=== PATIENT | female | born 1985 | race Asian ===

== ENCOUNTER → 2019-09-24 10:20 | Outpatient (CLI) | payer OTHER, SELFPAY | PROVIDERS: PCP Family Medicine; Referring Provider Obstetrics & Gynecology; Visit Provider Obstetrics & Gynecology | DX: Z11.59 Encounter for screening for other viral diseases (principal) | CPT/HCPCS: 87635; G2023; U0003 ==

== ENCOUNTER 2019-09-27 09:00 | Inpatient (IN) | payer OTHER, SELFPAY ==
[2019-09-27] VITALS (18 sets, daily range): BP systolic 93–114; BP diastolic 47–78; PULSE 65–79; RESP 14–126; TEMP 36.5–37.3; O2SAT 98–100; BMI 29.0
[2019-09-27] MEDS: Lactated Ringers 1,000 ML 999 ML IV (09:40)
[2019-09-27 10:21] LABS: Absolute Lymphocyte Count 1.33 X10^3/uL (0.83-4.51); Absolute Neutrophil Count 4.7 X10^3/uL (2.0-7.7); Basophil# 0.02 X10^3/uL; Basophil% 0.3 % (0-1); Eosinophil# 0.08 X10^3/uL; Eosinophils% 1.2 % (0-5); Hematocrit 35.6 % (37-47); Hemoglobin 11.7 g/dL (12.0-15.0); Lymphocyte # 1.33 X10^3/ul (4.0); Lymphocyte % 20.1 % (19-41); Mean Corp Hgb Conc 32.9 g/dL (32-36); Mean Corpuscular Hgb 28.2 pg (27.0-32.0); Mean Corpuscular Volume 85.8 fL (81-99); Monocyte# 0.45 X10^3/uL; Monocyte% 6.8 % (0-10); NRBC Flagged by Analyzer 0 % (0-5); Neutrophil % 71.1 % (47-70); Platelet Count 206 K/mm3 (150-450); RBC Distribution Width CV 14.7 % (11.6-14.6); RBC Distribution Width SD 45.7 fl (35.1-43.9); Red Blood Count 4.15 M/mm3 (4.2-5.4); White Blood Count 6.6 K/mm3 (4.4-11.0)
[2019-09-27] MEDS: Acetaminophen 500 MG Tablet 1000 MG PO ×3 (10:49→23:49)
[2019-09-27] MEDS: Lactated Ringers 1,000 ML 150 ML IV (10:49)
[2019-09-27] MEDS: Sodium Citrate/Citric Acid 30 ML UDC PO (10:50)
[2019-09-27] MEDS: Cefazolin 2 GM in 0.9% Normal Saline 100 ML IV (11:33)
--- NOTE | 2019-09-27 12:40 | HP.PCM_ITS ---
History Date of Admission: 09/27/19 Final JAIMIE: 10/03/19 Gestational age: 39 Weeks and 1 Days History of this : This is a 34 year-old, G [], P [], at 39 weeks gestational age. Allergies No Known Allergies Allergy (Verified 08/12/16 11:47) Home Medications: Home Medications No Known/Unobtainable [No Known Home Medications] 08/10/16 Smoking Status: Never smoker Alcohol: None Number of Fetus(es): 1 History Past Pregnancies: Past Pregnancies Delivery Date Name GA/ Weeks Outcome Route Wt Infant Sex Labor Length Anesthesia Delivery Location Provider FOB Labs: See [facility] prenatals Physical Exam Vitals: Vital Signs Temp Pulse BP Pulse Ox 98.0 F 73 111/75 98 09/27/19 10:30 09/27/19 10:30 09/27/19 10:30 09/27/19 10:30 General: Alert, Oriented x3 Abdomen: Soft, Non Tender, Non-Distended, Gravid Neurological: Cranial nerves II-XII grossly intact [employer]SE MECH[employer]IC: Normal external genitalia Presentation: Breech - confirmed by TAUS today Assessment/Plan This is a 34 year-old, G2, P0010, at 39&1 weeks gestational age. Admit to L&D Breech - discussed R/B/A of MOD and patient wishes to proceed with primary c- section. All questions answered & informed consent signed. COVID negative GDM - check PP FBS
--- NOTE | 2019-09-27 12:43 | OP.PCM_ITS ---
Report of Operation Date of Procedure: 09/27/19 Surgery/Procedure Performed:: Primary low transverse section Description of Surgical Findings:: Maternal uterus with large (6x5cm)l eft sided fibroid and smaller (1x2cm)midline to right sided fibroid. Normal adnexa. Delivery Classification: Scheduled Final JAIMIE: 10/03/19 Gestational age: 39 Weeks and 1 Days chairman & chief executive officer: Shwetha Loza Type of Anesthesia:: Spinal Date of Procedure: 09/27/19 Pre-Operative Diagnosis: Breech Post-Operative Diagnosis: Breech Indications for : Breech Description of Procedure: Patient taken to OR where spinal anesthesia was placed. She was prepped and draped in the normal sterile fashion in a dorsal supine position with a leftward tilt. After ensuring adequacy of anesthesia the Pfannensteil skin incision was made and carried through to the underlying fascia with a scalpel. The fascia was incised in the midline and carried laterally with the Marquez scissors. The rectus muscles were in the midline and the peritoneum was entered bluntly. The bladder flap was dissected down carefully with the Metzenbaum scissors and blunt dissection. The uterus was incised in a transverse fashion and then incision extended with cephalocaudad traction. The fetus was breech and buttocks were grasped. Baby was delivered via typical breech maneuvers with also making a slight extension(2cm) in the uterine incision with bandage scissors to allow for head delivery. At no time was excess traction placed on the baby. 3VC clamped & cut in slightly delayed fashion. Then the infant was handed off to the waiting RN. The placenta was delivered with gentle traction and fundal massage and the uterus was exteriorized and cleared of all clots and debris. The uterine incision was closed with 1 vicryl suture in a running locked fashion. 2 additional figure of 8 sutures were placed on the right side of the uterine incision to further obtain hemostasis. A second imbricating layer of monocryl was placed. The uterus was returned to the peritoneal cavity. The pelvis was irrigated & then cleared of all clots and debris. The uterine incision was reexamined and found to be hemostatic. Some neri was placed over the uterine incision & bladder flap area due to the denuded areas. The fascia was closed with looped PDS suture in a running standard fashion. The subcutaneous tissue was examined & any bleeding bovie cauterized. The subcutaneous tissue was reapproximated with plain gut suture. The skin was closed in a subcuticular fashion by the TRAINING AND DEVELOPMENT HEAD with me present in the labor and delivery suite. I performed the remainder of the procedure w/ assistance. Amniotic Membrane Rupture Type: Artificial Amniotic Fluid Description: Clear Placenta Disposition: [facility] Drain: Nielson to straight drain Fluids Replaced: 1100ml Cord Entanglement: None Cord Vessel Description: 3 Vessels Esitmated Blood Loss (ml): 900ml Gender: Female - weight = 7-15 (1 minute): 8 (5 minute): 9 Delayed cord clamping: Yes Antibiotic Given: Ancef 2 grams IV x1 Complications: None
[2019-09-27] MEDS: Oxytocin 30 units/NS 500 ml 30 UNITS/500 ML IV.SOLN 167 UNITS IV (13:10)
[2019-09-27 13:31] LABS: Bedside Glucose 65 mg/dL (70-110)
[2019-09-27 13:31] LABS: Bedside Glucose 88 mg/dL (70-110)
[2019-09-27] MEDS: Lactated Ringers 1,000 ML 100 ML IV (16:18)
[2019-09-27 17:36] LABS: Bedside Glucose 92 mg/dL (70-110)
[2019-09-27] MEDS: Ketorolac 30 MG/ML Syringe IV ×2 (18:05→23:49)
[2019-09-27] MEDS: 0.9% Saline Lock 10 ML Syringe IV (23:49)
[2019-09-28] MEDS: Lactated Ringers 1,000 ML 100 ML IV (01:51)
--- NOTE | 2019-09-28 02:01 | NURSING ---
this RN closely assessing urine output. watson catheter not removed at this time d/t strike intake and output needed prior to next toradol dose. pt has borderline urine output at this time with rebecca colored urine. this RN strongly encouraging PO fluids and hung a second bag of LR. pt educated on the importance of having 30 cc/hr of urine in order to get next pain dose of medication.
[2019-09-28 03:45] VITALS: BP 112/66; PULSE 88; RESP 14; TEMP 37.1; O2SAT 95
[2019-09-28 04:06] LABS: Bedside Glucose 76 mg/dL (70-110)
[2019-09-28 04:16] LABS: Hematocrit 27.1 % (37-47); Hemoglobin 8.6 g/dL (12.0-15.0); Mean Corp Hgb Conc 31.7 g/dL (32-36); Mean Corpuscular Hgb 27.6 pg (27.0-32.0); Mean Corpuscular Volume 86.9 fL (81-99); Mean Platelet Vol. 11.3 fl (6.2-12.0); Platelet Count 157 K/mm3 (150-450); RBC Distribution Width SD 46.8 fl (35.1-43.9); Red Blood Count 3.12 M/mm3 (4.2-5.4); White Blood Count 7.6 K/mm3 (4.4-11.0)
[2019-09-28] MEDS: 0.9% Saline Lock 10 ML Syringe IV ×3 (04:40→12:18)
[2019-09-28] MEDS: Acetaminophen 500 MG Tablet 1000 MG PO ×4 (06:06→23:57)
[2019-09-28] MEDS: Ketorolac 30 MG/ML Syringe IV ×2 (06:06→12:18)
--- NOTE | 2019-09-28 08:18 | PCM.PN.OB ---
Subjective: Patient seen at bedside. infant. Reports minimal ambulation yesterday but has plans to walk more today. Pain is well controlled with Toradol IV. Patient is to start PO Motrin tonight and desires another medication. 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 Advised will write for PO Toradol. - Physical Exam Vitals/I&O's: Vital Signs Temp Pulse Resp BP Pulse Ox 98.7 F 88 14 112/66 95 09/28/19 03:45 09/28/19 03:45 09/28/19 03:45 09/28/19 03:45 09/28/19 03:45 Oxygen Delivery Method Room Air Weight: 153 lb 10.595 oz Body Mass Index (BMI) 29.0 Intake and Output for Last 24 Hours 09/26/19 09/27/19 09/28/19 23:59 23:59 23:59 Intake Total 3254 / 3254 2436.67 / 2436.67 Output Total 1025 / 1025 400 / 400 Balance 2229 / 2229 2036.67 / 2036.67 General: Alert, Oriented x3, Cooperative Lungs: Normal air movement Cardiovascular: Regular rate Abdomen: Bowel Sounds Present, Soft, Passing Flatus Extremities: Capillary Refill Less than 3 Seconds, No Calf Tenderness Skin: No rashes Neurological: Cranial nerves II-XII grossly intact Psych/Mental Status: Normal Affect Comment: Dressing is dry and intact. Fundus firm at U Laboratory Results 09/27/19 09:40: WBC 6.6, RBC 4.15 L, Hgb 11.7 L, Hct 35.6 L, MCV 85.8, MCH 28.2, MCHC 32.9, RDW Std Deviation 45.7 H, RDW Coeff of Brayden 14.7 H, Plt Count 206, MPV 12.0, Immature Gran % (Auto) 0.500, Neut % (Auto) 71.1 H, Lymph % (Auto) 20.1, Archer % (Auto) 6.8, Eos % (Auto) 1.2, Baso % (Auto) 0.3, Absolute Neuts (auto) 4.7, Absolute Lymphs (auto) 1.33, Nucleated RBC % 0 09/27/19 09:40: Blood Type AB POSITIVE, Antibody Screen NEGATIVE 09/27/19 10:39: POC Glucose 65 L 09/27/19 11:22: POC Glucose 88 09/27/19 13:34: POC Glucose 92 09/28/19 03:52: POC Glucose 76 09/28/19 04:00: WBC 7.6, RBC 3.12 L, Hgb 8.6 L, Hct 27.1 L, MCV 86.9, MCH 27.6, MCHC 31.7 L, RDW Std Deviation 46.8 H, RDW Coeff of Brayden 15.0 H, Plt Count 157, MPV 11.3 Current Medications Acetaminophen (Tylenol) 1,000 mg PO Q6 ON LICENSE OF [facility] Last Admin: 09/28/19 06:06 Dose: 1,000 mg Documented by: Bisacodyl (Dulcolax) 10 mg RECTAL UD PRN PRN Reason: If no BM Diphenhydramine HCl (Benadryl) 25 mg PO Q6H PRN PRN PRN Reason: ITCHING Stop: 09/28/19 13:04 Enoxaparin Sodium (Lovenox) 40 mg SC BID ON LICENSE OF [facility] Hydrocortisone (Hytone) 1 applic TOPICAL TID PRN PRN; Protocol PRN Reason: Discomfort Naloxone HCl 4 mg/ Dextrose 504 mls @ 0 mls/hr IV PRN PRN; Protocol PRN Reason: TO MAINTAIN RR>10 Lactated Ringer's () 1,000 mls @ 100 mls/hr IV .Q10H ON LICENSE OF [facility] Last Infusion: 09/28/19 04:40 Dose: Infused Documented by: Ibuprofen (Motrin) 600 mg PO Q6 ON LICENSE OF [facility] Ketorolac Tromethamine (Toradol (Bkc)) 30 mg IV Q6 ON LICENSE OF [facility] Stop: 09/28/19 12:01 Last Admin: 09/28/19 06:06 Dose: 30 mg Documented by: Methylergonovine Maleate (Methergine) 0.2 mg IM X1 PRN PRN Reason: Uterine Atony Nalbuphine HCl (Nubain) 5 mg IV Q3H PRN PRN PRN Reason: ITCHING Stop: 09/28/19 13:04 Naloxone HCl (Narcan) 0.2 mg IV Q1M PRN PRN Reason: RR<10 AND PT UNRESPONSIVE Stop: 09/28/19 13:05 Ondansetron HCl (Zofran) 4 mg IV Q4H PRN PRN PRN Reason: Nausea Oxycodone HCl (Oxyir) 5 - 10 mg PO Q4H PRN PRN PRN Reason: Pain Score 4-10/10 Prochlorperazine Edisylate (Compazine Iv) 10 mg IV Q6H PRN PRN PRN Reason: NAUSEA Senna/Docusate Sodium (Senokot-S, Yadi-Colace) 0 tablet PO DAILY DEANDRA Simethicone (Mylicon) 80 mg PO PCHS PRN PRN Reason: Indigestion/stomach pain Sodium Chloride () 5 - 15 ml IV UD PRN PRN Reason: SALINE FLUSH Last Admin: 09/28/19 06:06 Dose: 10 ml Documented by: Medical Necessity - Tobacco Use Smoking Status: Never smoker Assessment/Plan Patient is Post op day #1 Primary c/s for breech Pain management Increase ambulation Routine care Anticipate discharge home tomorrow
[2019-09-28 08:35] VITALS: BP 87/53; PULSE 70; RESP 16; TEMP 36.6; O2SAT 96
[2019-09-28] MEDS: Enoxaparin 40 MG/0.4 ML Syringe SC ×2 (10:15→22:07)
[2019-09-28] MEDS: Senna/Docusate Sodium 1 Tablet PO (10:15)
[2019-09-28 12:20] VITALS: BP 95/83; PULSE 69; RESP 14; TEMP 36.4
[2019-09-28 16:20] VITALS: BP 89/56; PULSE 70; RESP 16; TEMP 36.7; O2SAT 95
[2019-09-28 20:22] VITALS: BP 106/61; PULSE 70; RESP 16; TEMP 36.9
[2019-09-28] MEDS: Ketorolac 10 MG Tablet PO (20:32)
[2019-09-29 02:10] VITALS: BP 104/56; PULSE 80; RESP 16; TEMP 37
[2019-09-29] MEDS: Ketorolac 10 MG Tablet PO ×3 (02:55→15:09)
[2019-09-29] MEDS: Acetaminophen 500 MG Tablet 1000 MG PO ×2 (06:12→12:49)
[2019-09-29 08:59] VITALS: BP 102/66; PULSE 69; RESP 18; TEMP 36.4; O2SAT 97
--- NOTE | 2019-09-29 09:09 | PN.OBGYN_ITS ---
Subjective: Patient seen at bedside. Pain controlled. Ambulating and voiding without difficulty. Passing flatus and had BM this morning. going well. Desires discharge home today - Physical Exam Vitals/I&O's: Vital Signs Temp Pulse Resp BP Pulse Ox 97.6 F L 69 18 102/66 97 09/29/19 08:59 09/29/19 08:59 09/29/19 08:59 09/29/19 08:59 09/29/19 08:59 Oxygen Delivery Method Room Air Weight: 153 lb 10.595 oz Body Mass Index (BMI) 29.0 Intake and Output for Last 24 Hours 09/27/19 09/28/19 09/29/19 23:59 23:59 23:59 Intake Total 3254 / 3254 2436.67 / 2436.67 Output Total 1025 / 1025 800 / 800 Balance 2229 / 2229 1636.67 / 1636.67 General: Alert HEENT: Atraumatic Lungs: Normal air movement Cardiovascular: Regular rate Abdomen: Bowel Sounds Present, Soft, Non Tender Extremities: No edema Skin: No rashes Neurological: Cranial nerves II-XII grossly intact - Dressing is dry and intact. Fundus is firm 1 below U Current Medications Acetaminophen (Tylenol) 1,000 mg PO Q6 [facility] Last Admin: 09/29/19 06:12 Dose: 1,000 mg Documented by: Bisacodyl (Dulcolax) 10 mg RECTAL UD PRN PRN Reason: If no BM Enoxaparin Sodium (Lovenox) 40 mg SC BID [facility] Last Admin: 09/28/19 22:07 Dose: 40 mg Documented by: Hydrocortisone (Hytone) 1 applic TOPICAL TID PRN PRN; Protocol PRN Reason: Discomfort Naloxone HCl 4 mg/ Dextrose 504 mls @ 0 mls/hr IV PRN PRN; Protocol PRN Reason: TO MAINTAIN RR>10 Ketorolac Tromethamine (Toradol) 10 mg PO Q6H PRN PRN PRN Reason: Pain Score 1-5/10 Stop: 10/03/19 18:00 Last Admin: 09/29/19 02:55 Dose: 10 mg Documented by: Methylergonovine Maleate (Methergine) 0.2 mg IM X1 PRN PRN Reason: Uterine Atony Ondansetron HCl (Zofran) 4 mg IV Q4H PRN PRN PRN Reason: Nausea Oxycodone HCl (Oxyir) 5 - 10 mg PO Q4H PRN PRN PRN Reason: Pain Score 4-10/10 Prochlorperazine Edisylate (Compazine Iv) 10 mg IV Q6H PRN PRN PRN Reason: NAUSEA Senna/Docusate Sodium (Senokot-S, Yadi-Colace) 0 tablet PO DAILY DEANDRA Last Admin: 09/28/19 10:15 Dose: 2 tablet Documented by: Simethicone (Mylicon) 80 mg PO PCHS PRN PRN Reason: Indigestion/stomach pain Sodium Chloride () 5 - 15 ml IV UD PRN PRN Reason: SALINE FLUSH Last Admin: 09/28/19 12:18 Dose: 10 ml Documented by: Medical Necessity - Tobacco Use Smoking Status: Never smoker Assessment/Plan Post op day #2 Routine care Pain management Discharge instructions given Patient to follow up in 1 week for incision check
--- NOTE | 2019-09-29 09:12 | DS.PCM_ITS ---
Discharge Date and Diagnosis Date of Admission: 09/27/19 Date of Discharge: 09/29/19 Hospital Course and Treatment Summary of Care Provided: The patient is a 34 year old F at term gestation for a scheduled primary C/S for breech presentation on 09/27/19. Course uncomplicated. Discharged home on 09/29/19 - Physical Exam Vitals/I&O's: Vital Signs Temp Pulse Resp BP Pulse Ox 97.6 F L 69 18 102/66 97 09/29/19 08:59 09/29/19 08:59 09/29/19 08:59 09/29/19 08:59 09/29/19 08:59 Oxygen Delivery Method Room Air Weight: 153 lb 10.595 oz Body Mass Index (BMI) 29.0 Intake and Output for Last 24 Hours 09/27/19 09/28/19 09/29/19 23:59 23:59 23:59 Intake Total 3254 / 3254 2436.67 / 2436.67 Output Total 1025 / 1025 800 / 800 Balance 2229 / 2229 1636.67 / 1636.67 General: Alert Neck: Supple Lungs: Normal air movement Cardiovascular: Regular rate Abdomen: Bowel Sounds Present, Soft, Passing Flatus - BM today Extremities: No Calf Tenderness Skin: No rashes Neurological: Cranial nerves II-XII grossly intact Psych/Mental Status: Normal Affect Current Medications Acetaminophen (Tylenol) 1,000 mg PO Q6 [facility] Last Admin: 09/29/19 06:12 Dose: 1,000 mg Documented by: Bisacodyl (Dulcolax) 10 mg RECTAL UD PRN PRN Reason: If no BM Enoxaparin Sodium (Lovenox) 40 mg SC BID [facility] Last Admin: 09/28/19 22:07 Dose: 40 mg Documented by: Hydrocortisone (Hytone) 1 applic TOPICAL TID PRN PRN; Protocol PRN Reason: Discomfort Naloxone HCl 4 mg/ Dextrose 504 mls @ 0 mls/hr IV PRN PRN; Protocol PRN Reason: TO MAINTAIN RR>10 Ketorolac Tromethamine (Toradol) 10 mg PO Q6H PRN PRN PRN Reason: Pain Score 1-5/10 Stop: 10/03/19 18:00 Last Admin: 09/29/19 02:55 Dose: 10 mg Documented by: Methylergonovine Maleate (Methergine) 0.2 mg IM X1 PRN PRN Reason: Uterine Atony Ondansetron HCl (Zofran) 4 mg IV Q4H PRN PRN PRN Reason: Nausea Oxycodone HCl (Oxyir) 5 - 10 mg PO Q4H PRN PRN PRN Reason: Pain Score 4-10/10 Prochlorperazine Edisylate (Compazine Iv) 10 mg IV Q6H PRN PRN PRN Reason: NAUSEA Senna/Docusate Sodium (Senokot-S, Yadi-Colace) 0 tablet PO DAILY DEANDRA Last Admin: 09/28/19 10:15 Dose: 2 tablet Documented by: Simethicone (Mylicon) 80 mg PO PCHS PRN PRN Reason: Indigestion/stomach pain Sodium Chloride () 5 - 15 ml IV UD PRN PRN Reason: SALINE FLUSH Last Admin: 09/28/19 12:18 Dose: 10 ml Documented by: Discharge Activity: May Not Drive - for 2 weeks, May Shower May resume sexual activity in: 8 weeks Weight Bearing Status: Weight bearing as tolerated Lifting Restrict to (lbs):: 25 Call your doctor if your incision/area has: Continuous Slow Oozing, Sudden Increased Bleeding, Increased Pain/ Swelling, Increased Redness, Foul Smelling Discharge, Swelling at the incision site Call your doctor if you observe: Fever of 101 or Higher, Inability to urinate, Using more than one pad per hour, Shortness of breath, Dizziness, Fainting spells, Swelling in the ankles, Chest pain, Uncontrolled pain Cleanse incision/area with: Soap & Water Home Medications: Medications to take at Discharge No Known/Unobtainable [No Known Home Medications] 08/10/16 Primary Care Physician: Escobar Paz MD [Primary Care Provider] - Please Follow Up With: Celeste Kuhn CNM When: 1 week for incision check Disposition: Home Minutes spent on discharge:: 30 Patient Condition:: Stable Medical Necessity - Tobacco Use Smoking Status: Never smoker Meaningful Use Info Meaningful Use Diagnoses (Choose all that apply): None applicable
[2019-09-29] MEDS: Senna/Docusate Sodium 1 Tablet PO (09:20)
--- NOTE | 2019-09-29 09:20 | DCINST_ITS ---
Discharge Activity: May Not Drive - for 2 weeks, May Shower May resume sexual activity in: 8 weeks Weight Bearing Status: Weight bearing as tolerated Call your doctor if your incision/area has: Continuous Slow Oozing, Sudden Increased Bleeding, Increased Pain/ Swelling, Increased Redness, Foul Smelling Discharge, Swelling at the incision site Call your doctor if you observe: Fever of 101 or Higher, Inability to urinate, Using more than one pad per hour, Shortness of breath, Dizziness, Fainting spells, Swelling in the ankles, Chest pain, Uncontrolled pain Cleanse incision/area with: Soap & Water Additional Instructions: If you experience any of the following, contact your healthcare provider. * Bleeding that soaks a pad every hour for 2 hours * Fever 100.4 or higher * Unrelieved incision or abdominal pain * Swelling, redness, discharge or bleeding from your incision or episiotomy site * Your incision begins to separate * Problems urinating (including inability to urinate or burning while urinating). * Visual changes * Severe headache * Flu-like symptoms * Pain or redness in one of both of your breasts * Pain, warmth, tenderness or swelling in your legs, especially the calf area * Frequent nausea and vomiting * Symptoms of depression or anxiety If you experience any of the following, call 911 or go to the nearest Emergency Room. * Chest pain * Problems breathing * Seizure activity * Partial or complete paralysis of a body part, slurred speech, weakness or drooping of the face, or a sudden inability to walk or hold your balance Allergies/Adverse Reactions: Allergies No Known Allergies Allergy (Verified 08/12/16 11:47) Medications to take at Discharge No Known/Unobtainable [No Known Home Medications] 08/10/16 Follow-Up: Call to make an appointment with your doctor for an incision check in 1-2 weeks. You will also need a 6 week post- follow up appointment. Test results from this visit will be discussed in further detail at your follow- up appointment, if applicable. Primary Care Physician: Escobar Paz MD [Primary Care Provider] -
[2019-09-29] MEDS: Enoxaparin 40 MG/0.4 ML Syringe SC (10:53)
[2019-09-29 14:28] VITALS: BP 103/52; PULSE 78; RESP 18; TEMP 37.3
== END 2019-09-29 15:20 | disposition home or self-care (01) | DRG 788 ==
PROVIDERS: Admitting Provider Obstetrics & Gynecology; PCP Family Medicine; Referring Provider Obstetrics & Gynecology; Visit Provider Obstetrics & Gynecology
PROC: 10D00Z1 Extraction of Products of Conception, Low, Open Approach (ICD-10-PCS; CPT 59514; principal; 2019-09-27 11:15)
DX: O32.1XX0 Maternal care for breech presentation, not applicable or unspecified (principal); Z3A.39 39 weeks gestation of pregnancy; Z37.0 Single live birth; O24.429 Gestational diabetes mellitus in childbirth, unspecified control; O34.13 Maternal care for benign tumor of corpus uteri, third trimester; D25.9 Leiomyoma of uterus, unspecified
CPT/HCPCS: 82962; 85025; 85027; 86850; 86900; 86901; 99218; J7120; A4216; G0378; J2405